=== PATIENT | male | born 1970 | race Caucasian/White ===

== ENCOUNTER 2024-04-20 12:24 | Emergency (ER) | payer OTHER ==
[~2024-04-20 12:24] MED LIST: Lidocaine 1% PF 5 ML VIAL ONE
[2024-04-20] MEDS ORDERED: Orphenadrine Citrate 60 MG/2 ML VIAL ONE (12:38)
== END 2024-04-20 13:03 | disposition home or self-care (01) ==
LOC: BURERS 12:24
DX: S49.91XA Unspecified injury of right shoulder and upper arm, initial encounter (principal); X08.8XXA Exposure to other specified smoke, fire and flames, initial encounter; Y99.2 Volunteer activity; Z55.6 Problems related to health literacy
CPT/HCPCS: 96372; J2360